=== PATIENT | male | born 1955 | race Caucasian/White ===

== ENCOUNTER 2018-12-22 17:44 | Observation (INO) | payer OTHER ==
[2018-12-22 18:38] LABS: #Basophils 0.1 thou/uL (0.0-0.2); #Eosinphils 0.1 thou/uL (0.0-0.7); #Monocytes 0.8 thou/uL (0.11-0.59); #Neutrophils 6.4 thou/uL (1.40-6.50); %Basophils 0.6 % (0.0-1.0); %Eosinophils 1.2 % (0.0-10.0); %Lymphocytes 28.8 % (21.0-51.0); %Monocytes 7.7 % (0.0-10.0); %Neutrophils 61.7 % (42.0-75.0); Hemoglobin 14.8 g/dL (14.0-18.0); Mean Corpuscular HGB CONC 34.5 g/dL (32.0-36.0); Mean Corpuscular Hemoglobin 32.9 pg (27.0-31.0); Mean Corpuscular Volume 95.3 fL (78.0-98.0); Mean Platelet Volume 8.6 fL (7.4-10.4); Platelet Count 246 thou/uL (130-400); White Blood Cell (WBC) Count 10.3 thou/uL (4.8-10.8)
[2018-12-22 18:58] LABS: ALT (SGPT) 25 U/L (8-55); AST (SGOT) 16 U/L (5-34); Albumin 4.1 g/dL (3.4-4.8); Alkaline Phosphatase 156 U/L (40-110); Anion Gap 10 mmol/L (10-20); BUN (Urea Nitrogen) 9 mg/dL (8.4-25.7); Bilirubin, Total 0.4 mg/dL (0.2-1.2); Calc. Creatinine Clearance 0 mL/min (70-130); Calcium 9.1 mg/dL (7.8-10.44); Carbon Dioxide 27 mmol/L (23-31); Chloride 103 mmol/L (98-107); Estimated GFR-MDRD Greater than 90; Globulin 3.1 g/dL (2.4-3.5); Glucose 115 mg/dL (80-115); Potassium 3.7 mmol/L (3.5-5.1); Protein, Total 7.2 g/dL (5.8-8.1); Sodium 136 mmol/L (136-145)
--- NOTE | 2018-12-22 20:01 | CT ---
CT ANGIOGRAM OF THE THORACIC AORTA CT ANGIOGRAM OF THE ABDOMINAL AORTA 12/22/18 HISTORY: Headache. Numbness in the fingertips. Pain in the shoulder blades. COMPARISON: None. TECHNIQUE: CT angiogram of the thoracic and abdominal aorta performed in the axial plane. Three dimensional refo rmatted images are submitted for interpretation. FINDINGS: CHEST CT: No mediastinal mass, lymphadenopathy or hematoma. Heart size is within normal limits. No pericardial effusion. Minimal calcification of the coronary arteries. The visualized lower neck and axilla are unremarkable. Trachea and central bronchi are patent. Emphys ematous changes with blebs and bullae in both lung apices. No suspicious masses or consolidation. Add itional small blebs are noted in the right lower lobe. No pleural effusion. No pneumothorax. ABDOMEN CT: Fatty infiltration of the liver. Appropriate arterial phase enhancement of the spleen, pancreas and r ight adrenal gland. Indeterminate left adrenal nodule measuring 2.1 x 2.1 cm. Appropriate enhancement of the kidneys. Bilaterally, no obstructive uropathy. No mesenteric mass, lym phadenopathy, free air of free fluid. Limited evaluation of the alimentary canal by the lack of oral contrast. No evidence of bowel obstruc tion. No lytic or blastic lesions in the osseous structures. CT ANGIOGRAM: The root of the aorta has a normal caliber and appropriate enhancement. The ascending thoracic aorta, aortic arch, descending thoracic aorta, abdominal aorta, and aortic bifurcation have appropriate enh ancement and luminal diameter. Minimal atherosclerosis of the infrarenal abdominal aorta. The origin of the great vessels of the neck are unremarkable. The celiac artery origin, superior mese nteric artery origin, bilateral renal artery origins, inferior mesenteric artery origin as well as th e visualized iliac arteries have appropriate enhancement and luminal diameter. No evidence of aneurys m or dissection. IMPRESSION: 1. No evidence of aneurysm or dissection. 2. Indeterminate left adrenal nodule. Nonemergent abdomen MRI or adrenal mass protocol CT can be performed. 3. Emphysematous change of the lung parenchyma. POS: PHYLICIA
[2018-12-22] MEDS ORDERED: Nitroglycerin 0.4 MG TAB (25 Tab Bottle) PO PRN (21:56)
[2018-12-22 22:02] LABS: Troponin I 0.011 ng/mL (< 0.028)
--- NOTE | 2018-12-22 22:18 | HP ---
PRIMARY CARE PROVIDER: Dr. Jordan Ugalde. CHIEF COMPLAINT: Chest pain. HISTORY OF PRESENT ILLNESS: Mr. Mccauley is a pleasant 63-year-old gentleman, who was seen at [facility] on December 22, 2018. 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 Over the last several months, he has had episodes of tinnitus and lightheadedness. His also reports that he is hard of hearing. Over the last 2 days, he has had pain in his left upper extremity. He attributes it to grabbing the handrail on his truck. Today afternoon, he started having left-sided chest pain. He reports it as on and off, sharp, 3/10 at its worst, radiating to his left arm. He denies any worsening of his shortness of breath. He has chronic shortness of breath secondary to COPD. He denies any cough or fevers. He has been trying to quit smoking and is currently down to two packs of cigarettes a week, from two packs a day a few weeks ago. The patient cannot recall any aggravating or relieving factors for the chest pain. REVIEW OF SYSTEMS: All systems were reviewed and found to be negative except for the pertinent positives mentioned above. PAST MEDICAL HISTORY: COPD, dyslipidemia. PAST SURGICAL HISTORY: None. SOCIAL HISTORY: The patient smokes two packs of cigarettes a week. He denies alcohol use or recreational drug use. FAMILY HISTORY: Significant for hypertension in several family members. ALLERGIES: FLUOROQUINOLONES AND ZOCOR. CURRENT MEDICATIONS: ProAir HFA one puff daily, QVAR one puff daily, fenofibrate 54 mg daily, Zetia 10 mg daily, levocetirizine 5 mg daily, albuterol inhalation as needed. PHYSICAL EXAMINATION: GENERAL: On examination, Mr. Mccauley is awake and alert, not in acute distress. VITAL SIGNS: Blood pressure is 123/72, pulse 75, respiratory rate 20, and oxygen saturation 97% on room air. He is afebrile. EYES: No scleral icterus, no conjunctival pallor. ENT: Moist mucosal membranes. No oropharyngeal erythema or exudates. NECK: Supple, nontender. Trachea is midline. RESPIRATORY: Accessory muscles of breathing are not active. Chest wall movements are symmetric bilaterally. LUNGS: Clear to auscultation without wheeze, rhonchi, or crepitations. CARDIOVASCULAR: S1 and S2 are heard, regular. Peripheral pulses palpable. ABDOMEN: Soft, nontender. Bowel sounds heard. NEUROLOGIC: Cranial nerves 2 through 12 are intact. MUSCULOSKELETAL: Power is 5/5 in all 4 extremities. No left upper extremity tenderness. SKIN: No rashes or subcutaneous nodules. LYMPHATIC: No cervical lymphadenopathy. PSYCHIATRIC: Normal mood, normal affect. The patient is oriented to person, place, and time. LABORATORY DATA: Mr. Mccauley's labs and investigations were reviewed. A 12-lead EKG shows normal sinus rhythm, no ST changes to suggest an acute coronary syndrome. CT dissection protocol did not show any evidence of aneurysm or dissection. He had an indeterminate left adrenal nodule. He had emphysematous change of the lung parenchyma. He has an unremarkable CBC. Elevated alkaline phosphatase of 156, otherwise normal comprehensive metabolic profile, and first troponin I that is less than 0.010. ASSESSMENT AND PLAN: Mr. Mccauley is a pleasant 63-year-old gentleman, who was seen at [facility] on December 22, 2018. His problem list includes. 1. Chest pain: Mr. Mccauley is presenting with chest pain. Given his significant risk factors, the patient will be admitted to the hospital for acute coronary syndrome rule out. We will monitor on telemetry. We will recheck troponin. We will obtain stress test. 2. Adrenal nodule: The patient will be advised to follow up with his primary care provider for further workup. 3. Tobacco abuse: The patient has been counseled regarding tobacco cessation. We will continue him on nicotine replacement therapy. Many thanks for allowing me to participate in your patient's care. Please feel free to contact me with any questions or concerns. LEVEL OF RISK: Moderate. LEVEL OF COMPLEXITY: Moderate. Job ID: [id number]
[2018-12-22 22:42] VITALS: BMI 34.8
[2018-12-23 00:58] LABS: Troponin I 0.026 ng/mL (< 0.028)
[2018-12-23] MEDS ORDERED: Acetaminophen 325 MG TAB PO PRN (07:12)
[2018-12-23] MEDS ORDERED: Albuterol Sulfate 2.5 mg/3 ml Neb NEB SCH (09:00)
[2018-12-23] MEDS ORDERED: Fenofibrate Nanocrystallized 145 MG TAB PO SCH (09:00)
[2018-12-23] MEDS ORDERED: Ezetimibe 10 MG TAB PO SCH (09:00)
[2018-12-23] MEDS ORDERED: Aspirin 325 mg Enteric Coated Tablet PO SCH (09:00)
--- NOTE | 2018-12-23 09:46 | PDOC.HOSPP ---
- Subjective Encounter Date: 12/23/18 Encounter Time: 07:30 Subjective: Patient seen and examined. No new complaints. No overnight events - Objective Vital Signs & Weight: Vital Signs (12 hours) Temp Pulse Resp BP Pulse Ox 12/23/18 07:37 77 18 93 L 12/23/18 07:23 97.7 F 76 20 114/62 96 12/23/18 03:03 98.6 F 76 17 133/63 96 12/22/18 21:55 97.9 F 82 18 135/62 95 Weight Weight 196 lb 11.2 oz I&O: 12/22/18 12/23/18 12/24/18 06:59 06:59 06:59 Intake Total 480 Output Total 500 Balance -20 Result Diagrams: 12/22/18 18:16 12/22/18 18:16 Radiology Reviewed by me: Yes EKG Reviewed by me: Yes Hospitalist ROS - Review of Systems Eyes: denies: pain, vision change, conjunctivae inflammation, eyelid inflammation, redness, other ENT: denies: ear pain, ear discharge, nose pain, nose discharge, nose congestion , mouth pain, mouth swelling, throat pain, throat swelling, other Respiratory: denies: cough, dry, shortness of breath, hemoptysis, SOB with excertion, pleuritic pain, sputum, wheezing, other Cardiovascular: denies: chest pain, palpitations, orthopnea, paroxysmal noc. dyspnea, edema, light headedness, other Gastrointestinal: denies: nausea, vomiting, abdominal pain, diarrhea, constipation, melena, hematochezia, other Genitourinary: denies: dysuria, frequency, incontinence, hematuria, retention, other Musculoskeletal: denies: neck pain, shoulder pain, arm pain, back pain, hand pain, leg pain, foot pain, other Skin: denies: rash, lesions, aneesh, bruising, other - Medication Medications: Active Medications Generic Name Dose Route Start Last Admin Trade Name Freq PRN Reason Stop Dose Admin Albuterol Sulfate 2.5 mg 12/23/18 09:00 12/23/18 07:37 Ventolin NEB 2.5 mg BID TIERRA Administration - Exam General Appearance: NAD, awake alert Eye: PERRL, anicteric sclera ENT: normocephalic atraumatic, no oropharyngeal lesions Neck: supple, symmetric, no JVD, no thyromegaly Heart: RRR, no murmur, no gallops, no rubs Respiratory: CTAB, no wheezes, no rales, no ronchi Gastrointestinal: soft, non-tender, non-distended, normal bowel sounds Extremities: no cyanosis, no clubbing, no edema Skin: normal turgor, no lesions, no rashes Neurological: cranial nerve grossly intact, no focal deficits Musculoskeletal: normal tone, normal strength Psychiatric: normal affect, normal behavior, A&O x 3 Hosp A/P (1) Chest pain Code(s): R07.9 - CHEST PAIN, UNSPECIFIED Status: Acute (2) COPD (chronic obstructive pulmonary disease) Status: Chronic Qualifiers: COPD type: unspecified COPD Qualified Code(s): J44.9 - Chronic obstructive pulmonary disease, unspecified (3) Dyslipidemia Code(s): E78.5 - HYPERLIPIDEMIA, UNSPECIFIED Status: Chronic (4) Obesity (BMI 30.0-34.9) Code(s): E66.9 - OBESITY, UNSPECIFIED Status: Chronic - Plan old records reviewed/req, plan discussed w/ family stress test ordered medication reviewed as above symptomatic treatment home meds reconciled discharge after stress test if negative
[2018-12-23] MEDS ORDERED: Regadenoson 0.4 MG/5 ML SYRINGE ONE (12:00)
--- NOTE | 2018-12-23 12:16 | NM ---
CARDIAC SPECT: CLINICAL HISTORY: 63-year-old male with chest pain, COPD, shortness of breath, smoker. TECHNIQUE: A myocardial perfusion scan was performed using the single isotope one day protocol with technetium-9 9m sestamibi. 10 mCi were injected intravenously for the rest exam followed by 33 mCi for the stress exam. Pharmacologic stress with Lexiscan was monitored and interpreted by Kimberly Peres NP. FINDINGS: Homogeneous tracer distribution is seen in the myocardial segments on stress and rest images without fixed or reversible defects. GATED SPECT LVEF: 50%. WALL MOTION EXAM: Normal. IMPRESSION: Normal myocardial perfusion scan. POS: OFF
[2018-12-23] MEDS ORDERED: PROVENTIL INHALER 6.7 G (200 INHALATIONS) INH PRN (13:00)
[2018-12-23 16:00] VITALS: BP 139/65; TEMP 98.1
--- NOTE | 2018-12-23 16:09 | DIS ---
DATE OF ADMISSION: 12/22/2018 DATE OF DISCHARGE: 12/23/2018 PRIMARY CARE PHYSICIAN: [facility] Call admission. DISCHARGE DISPOSITION: Home. PRIMARY DISCHARGE DIAGNOSIS: Chest pain ruled out acute coronary syndrome. SECONDARY DISCHARGE DIAGNOSES: Chronic obstructive pulmonary disease, dyslipidemia, obesity. PRIMARY PROCEDURE/OPERATION: None. RADIOLOGICAL INVESTIGATION: CT dissection protocol negative for any dissection. Stress test negative for any ischemia. SIGNIFICANT LABORATORY DATA: WBC 10.3, hemoglobin 14.8, platelet 246. Sodium 136, potassium 3.7, BUN 9, creatinine 0.81, calcium 9.1. LFTs normal. Troponin negative x3. DISCHARGE MEDICATIONS: 1. ProAir HFA 2 puffs q.6 hourly p.r.n. 2. Albuterol nebulization twice daily. 3. Qvar inhalation b.i.d. 4. Zetia 10 mg daily. 5. Tricor 145 mg daily. 6. Levocetirizine 5 mg daily. 7. Nicotine patch as directed. 8. Ibuprofen 800 mg t.i.d. p.r.n. CONTRAINDICATION: None. CODE STATUS: Full code. INPATIENT AIR COMMODORE: None. ALLERGIES: LEVAQUIN, SIMVASTATIN. DISCHARGE PLAN: Posthospital, the patient will follow up with primary care physician in 1 or 2 weeks. HOSPITAL COURSE: A 63-year-old male with above-mentioned medical problem, who was admitted by Dr. Almanzar. Please see his H and P for further details. The patient was admitted for chest pain. A chest pain description was atypical. He had negative troponin as well as negative EKG. CT dissection protocol was negative. The patient was observed overnight and telemetry remained unremarkable. Subsequent cardiac enzymes remained negative and the patient also did not have any further chest pain. We did stress test and that came back negative. The patient will continue all his previous medication. Overall, the patient remained medically stable and we have excluded cardiopulmonary etiology. The patient is seen and examined at bedside today. Please see my progress note from today for further detail. Job ID: [id number]
[2018-12-23] MEDS ORDERED: Mometasone 100 MCG HFA INHALER INH SCH (18:30)
== END 2018-12-23 16:55 | disposition home or self-care (01) ==
LOC: ERS 17:44 → 2SW 20:35
PROVIDERS: ADMIT Internal Medicine; ATTEND Internal Medicine
DX: R07.89 Other chest pain (principal); J44.9 Chronic obstructive pulmonary disease, unspecified; E78.5 Hyperlipidemia, unspecified; F17.210 Nicotine dependence, cigarettes, uncomplicated; E27.8 Other specified disorders of adrenal gland; E66.9 Obesity, unspecified; Z68.34 Body mass index [BMI] 34.0-34.9, adult; Z79.899 Other long term (current) drug therapy; Z88.1 Allergy status to other antibiotic agents; Z88.8 Allergy status to other drugs, medicaments and biological substances
CPT/HCPCS: 36415; 71275; 72191; 74175; 78452; 80053; 84484; 85025; 93005; 93017; 94640; A9500; G0378; J2785; J7611

== ENCOUNTER 2019-11-03 08:46 | Emergency (ER) | payer OTHER ==
[2019-11-03] MEDS ORDERED: Ondansetron PF 4 MG/2 ML Vial ONE (09:15)
[2019-11-03] MEDS ORDERED: Ketorolac Tromethamine 30 MG/ML VIAL ONE (09:15)
[2019-11-03 09:27] LABS: #Basophils 0.1 thou/uL (0.0-0.2); #Eosinphils 0.3 thou/uL (0.0-0.7); #Lymphocytes 2.6 thou/uL (1.20-3.40); #Monocytes 1.1 thou/uL (0.11-0.59); %Basophils 0.4 % (0.0-1.0); %Eosinophils 2.3 % (0.0-10.0); %Lymphocytes 19.7 % (21.0-51.0); %Monocytes 8.5 % (0.0-10.0); %Neutrophils 69.1 % (42.0-75.0); Mean Corpuscular Hemoglobin 33.1 pg (27.0-31.0); Mean Corpuscular Volume 97.2 fL (78.0-98.0); Mean Platelet Volume 9.2 fL (7.4-10.4); Platelet Count 240 thou/uL (130-400); RBC Distribution Width 11.8 % (11.5-14.5); Red Blood Cell (RBC) Count 4.53 mill/uL (4.70-6.10)
[2019-11-03 09:50] LABS: Bilirubin Negative (Negative); Blood, Urine Negative (Negative); Clarity Clear (Clear); Glucose, Urine (Dipstick) Normal (Negative); Ketone, Urine Negative (Negative); Leukocyte Negative Leu/uL (Negative); Nitrite Negative (Negative); Protein, Urine (Dipstick) Negative (Neg-Trace); Specific Gravity, Urine 1.023 (1.002-1.036); Urobilinogen Normal mg/dL (Less than 2); pH, Urine 5.5 (5.0-9.0)
[2019-11-03 09:59] LABS: ALT (SGPT) 24 U/L (8-55); AST (SGOT) 22 U/L (5-34); Albumin 4.1 g/dL (3.4-4.8); Alkaline Phosphatase 120 U/L (40-110); Anion Gap 16 mmol/L (10-20); BUN (Urea Nitrogen) 16 mg/dL (8.4-25.7); Bilirubin, Total 0.6 mg/dL (0.2-1.2); Calc. Creatinine Clearance 0 mL/min (70-130); Carbon Dioxide 20 mmol/L (23-31); Chloride 106 mmol/L (98-107); Estimated GFR-MDRD 56; Globulin 3.3 g/dL (2.4-3.5); Glucose 141 mg/dL (80-115); Lipase 36 U/L (8-78); Potassium 4.4 mmol/L (3.5-5.1); Protein, Total 7.4 g/dL (5.8-8.1); Sodium 138 mmol/L (136-145)
--- NOTE | 2019-11-03 11:35 | CT ---
CT ABDOMEN AND PELVIS WITHOUT CONTRAST: HISTORY: Right-sided abdominal pain radiating to the testicle. FINDINGS: The absence of oral and IV contrast reduces the sensitivity of the exam, particularly for evaluation of solid organs involved. The lung bases are clear. Calcified granulomas are seen in the spleen. There is fatty infiltration of the liver and spleen. There is fatty infiltration in the liver. No calcified gallstones are seen . There is a 2.5 cm left adrenal nodule with attenuation values less than 10 Hounsfield units, consi stent with a benign adenoma. No free air or free fluid is seen in the abdomen or pelvis. There is a 3 mm calculus at the right UPJ with associated hydronephrosis. There is a punctate calcul us in the kidney. No calculi are seen in the left kidney, left ureter, or the urinary bladder. No l eft-sided hydroureteral nephrosis is seen. The small bowel loops are not abnormally dilated. A normal-appearing appendix is present. There are vascular calcifications without evidence of aneurysmal dilatation of the abdominal aorta. There are degenerative changes in the spine. IMPRESSION: 1. A 3 mm right ureteropelvic junction calculus with hydronephrosis. 2. Left adrenal adenoma. 3. Fatty liver. 4. Calcified granulomas in the liver and spleen. POS: OFF
--- NOTE | 2019-11-06 14:14 | EKG ---
Test Reason : Blood Pressure : / mmHG Vent. Rate : 074 BPM Atrial Rate : 074 BPM P-R Int : 124 ms QRS Dur : 072 ms QT Int : 380 ms P-R-T Axes : 022 033 057 degrees QTc Int : 421 ms Sinus rhythm with Premature atrial complexes Otherwise normal ECG Confirmed by DMITRIY PERALTA, DIMPLE ([id number]), associate entertainment editor JACK SERRANO ([id number]) on 11/06/2019 2:13:52 PM Referred By: Confirmed By:DIMPLE IZAGUIRRE MD
== END 2019-11-03 11:39 | disposition home or self-care (01) ==
LOC: ERS 08:46
DX: N13.2 Hydronephrosis with renal and ureteral calculous obstruction (principal); D35.02 Benign neoplasm of left adrenal gland; E11.9 Type 2 diabetes mellitus without complications; E78.5 Hyperlipidemia, unspecified; E78.00 Pure hypercholesterolemia, unspecified; J44.9 Chronic obstructive pulmonary disease, unspecified; F17.210 Nicotine dependence, cigarettes, uncomplicated; Z79.82 Long term (current) use of aspirin; Z79.84 Long term (current) use of oral hypoglycemic drugs; Z79.899 Other long term (current) drug therapy
CPT/HCPCS: 74176; 80053; 81003; 83605; 83690; 84484; 85025; 87086; 93005; 96361; 96374; 96375; J1885; J2405

== ENCOUNTER 2019-11-23 11:41 | Outpatient (CLI) | payer OTHER ==
[2019-11-23 14:29] LABS: #Eosinphils 0.3 thou/uL (0.0-0.7); #Lymphocytes 2.7 thou/uL (1.20-3.40); #Monocytes 0.7 thou/uL (0.11-0.59); #Neutrophils 5.1 thou/uL (1.40-6.50); %Basophils 0.5 % (0.0-1.0); %Eosinophils 3.7 % (0.0-10.0); %Lymphocytes 30.6 % (21.0-51.0); %Monocytes 7.5 % (0.0-10.0); %Neutrophils 57.7 % (42.0-75.0); Hemoglobin 14.3 g/dL (14.0-18.0); Mean Corpuscular HGB CONC 34.7 g/dL (32.0-36.0); Mean Corpuscular Hemoglobin 33.7 pg (27.0-31.0); Mean Corpuscular Volume 97.1 fL (78.0-98.0); Platelet Count 216 thou/uL (130-400); RBC Distribution Width 11.6 % (11.5-14.5); Red Blood Cell (RBC) Count 4.25 mill/uL (4.70-6.10); White Blood Cell (WBC) Count 8.8 thou/uL (4.8-10.8)
[2019-11-23 14:48] LABS: Anion Gap 14 mmol/L (10-20); BUN (Urea Nitrogen) 13 mg/dL (8.4-25.7); Calc. Creatinine Clearance 0 mL/min (70-130); Calcium 8.9 mg/dL (7.8-10.44); Carbon Dioxide 22 mmol/L (23-31); Chloride 108 mmol/L (98-107); Estimated GFR-MDRD Greater than 90; Glucose 97 mg/dL (80-115); Potassium 4.1 mmol/L (3.5-5.1); Sodium 140 mmol/L (136-145)
[2019-11-24 14:55] LABS: SARS-CoV-2 MS2 Positive; SARS-CoV-2 N Gene Negative; SARS-CoV-2 S Gene Negative; SARS-CoV-2 by NAA Not Detected (NotDetected); SARS-CoV-2 orf1ab Negative
--- NOTE | 2019-11-25 13:09 | EKG ---
Test Reason : Blood Pressure : / mmHG Vent. Rate : 073 BPM Atrial Rate : 073 BPM P-R Int : 130 ms QRS Dur : 084 ms QT Int : 390 ms P-R-T Axes : 062 053 058 degrees QTc Int : 429 ms Normal sinus rhythm with sinus arrhythmia Normal ECG When compared with ECG of 03-NOV-2019 09:28, Premature atrial complexes are no longer Present Confirmed by ANALI PERALTA, JOHN ([id number]) on 11/25/2019 1:08:51 PM Referred By: LEX Confirmed By:JOHN BRIONES MD
== END 2019-11-23 11:42 | disposition home or self-care (01) ==
LOC: LABBT 11:41
PROVIDERS: ATTEND Urology
DX: Z01.818 Encounter for other preprocedural examination (principal); Z20.828 Contact with and (suspected) exposure to other viral communicable diseases; Z12.5 Encounter for screening for malignant neoplasm of prostate; D35.02 Benign neoplasm of left adrenal gland; N20.1 Calculus of ureter; R35.0 Frequency of micturition; N52.9 Male erectile dysfunction, unspecified; N53.12 Painful ejaculation; R30.0 Dysuria; E11.9 Type 2 diabetes mellitus without complications; N48.89 Other specified disorders of penis; Z72.0 Tobacco use
CPT/HCPCS: 80048; 85025; 85610; 85730; 87635; 93005; 93010; U0003

== ENCOUNTER 2019-11-28 06:01 | Day surgery (SDC) | payer OTHER ==
[2019-11-23 15:24] VITALS: BMI 32.9
[2019-11-28] MEDS ORDERED: cefTRIAXone\\ROCEPHIN 2 GM VIAL ONE (06:55)
[2019-11-28] MEDS ORDERED: Sodium Chloride 0.9% 100 ML ONE (06:56)
[2019-11-28] MEDS ORDERED: Iothalamate Meglumine 60% 50 ML VIAL FS ONE (07:10)
--- NOTE | 2019-11-28 08:11 | RAD ---
RADIOGRAPH ABDOMEN 1 VIEW: DATE: 11/28/2019. TIME: 6:34 a.m. HISTORY: A 64-year-old male with right ureteral calculus. FINDINGS: There is a small, approximately 6 x 3 mm focal calcification projecting just to the right of the L3-4 level, consistent with the small calculus demonstrated on the abdominal CT of 11/03/2019. Its positio n has not changed. Bowel gas pattern is normal. IMPRESSION: Right ureteral 6 mm calculus remains essentially unchanged in position. POS: OFF
[2019-11-28] MEDS ORDERED: Fentanyl 100 MCG/2 ML VIAL ONE ×3 (08:49→10:52)
--- NOTE | 2019-11-28 09:58 | RAD ---
EXAM: Retrograde IVP HISTORY: Right kidney stone COMPARISON: CT abdomen/pelvis 11/03/2019 FINDINGS/IMPRESSION: Limited intraoperative fluoroscopic views of the retrograde IVP were submitted f or interpretation. There is a questionable calcification to the right of the L3/4 disc space. Eventually, a wire and stent are placed in the right renal collecting system which appears in good po sition proximally.
[2019-11-28] MEDS ORDERED: Phenazopyridine HCl 97.5 MG TABLET ONE ×2 (10:34)
[2019-11-28] MEDS ORDERED: EPHEDRINE 25 MG/5 ML SYRINGE ONE (11:13)
[2019-11-28] MEDS ORDERED: Ondansetron PF 4 MG/2 ML Vial ONE (11:13)
[2019-11-28] MEDS ORDERED: Lidocaine 1% PF 5 ML VIAL ONE (11:13)
[2019-11-28] MEDS ORDERED: PROPOFOL 200 MG/20 ML VIAL ONE (11:13)
[2019-11-28] MEDS ORDERED: Rocuronium Bromide 10 MG/ML (10ML VIAL) ONE (11:13)
[2019-11-28] MEDS ORDERED: Glycopyrrolate 0.2 MG/ML 5 ML SYRINGE ONE (11:13)
--- NOTE | 2019-11-28 16:12 | OP ---
DATE OF PROCEDURE: 11/28/2019 PREOPERATIVE DIAGNOSIS: 64-year-old male with history of right 6-mm proximal ureteral calculi with hydronephrosis. POSTOPERATIVE DIAGNOSIS: 64-year-old male with history of right 6-mm proximal ureteral calculi with hydronephrosis. PROCEDURES PERFORMED: Cystoscopy, dilation of the right intramural ureter, retrograde pyelogram, 6 x 24 double-J ureteral stent placement, flexible ureteroscopy, pyeloscopy, laser lithotripsy of right proximal ureteral calculi. ANESTHESIA: LMA, general. DISPOSITION: To recovery room in stable condition. INTRAOPERATIVE FINDINGS: 1. Bilobar [id number] hyperplasia of the prostate. No intravesical median lobe. UOs about 3 mm proximal to the bladder neck. 2. Bladder grossly unremarkable. 3. Right proximal ureteral calculi, impacted, imbedded with submucosal growth. SPECIMEN: None. INDICATIONS FOR PROCEDURE AND HISTORY: Mr. Mccauley is a 64-year-old male, who presented to the emergency room on November 02 due to right flank pain. CT demonstrating right hydronephrosis with proximal right ureteral calculi measuring about 6 mm in craniocaudal dimension at the level of L2. Preop KUB today demonstrates a stone did migrate to the level of L3-L4 ureter, however, is persistent. He continues to have intermittent discomfort and presents today for ureteroscopy, laser lithotripsy. Risks and complications of the procedure have been discussed with him in detail including, but not limited to: Bleeding, pain, infection, ureteral renal kidney injury, stricture formation, possible secondary procedure, sepsis, and chronic pain. All questions answered to his satisfaction. He desired to proceed without reservation. DESCRIPTION OF PROCEDURE: After an informed consent was signed, the patient was taken to the operating room, placed in a dorsal lithotomy position with the genital area prepped and draped in the usual surgical sterile fashion. Bilateral MIO hose, SCDs, and broad-spectrum antibiotics were provided. At this time, a 21-[place] Islander cystoscope was utilized for cystoscopy, which demonstrated normal anterior urethra. Prostatic urethra demonstrates evidence of bilobar hyperplasia, reet-hx-dmxyyiuf obstruction with no evidence of intravesical median lobe. The UOs were about 3 mm proximal to the bladder neck and the bladder was grossly unremarkable without tumor, stone. The UOs were identified bilaterally. They appeared to be somewhat small in caliber with no obvious stenosis. An open-ended catheter was difficult to intubate the right UO and a 0.035 Sensor wire was utilized to intubate and subsequently, an open-ended catheter passed. At this time, the wire was passed. There was resistance at the level of the stone. However, with some manipulation, we were able to pass this to the level of the right upper pole. At this time, a 15-[place] Islander 6- cm balloon dilatation of the intramural ureter was performed with pressure held for about a minute or two and subsequently, the balloon was completely deflated, successfully dilating the right distal ureter under fluoroscopic guidance. At this time, a 10-[place]er dual-lumen access sheath was passed to the level of the mid ureter and a second wire was able to be negotiated into the right upper pole. At this time with both wires in place, we attempted to pass a navigator. A 14-[place]er navigator was attempted to be passed. However, there was hang up at the level of the distal ureter, at the level of mid SI level therefore I did not forcibly engage. As such, we passed the flexible ureteroscope under visual guidance over the Super Stiff guidewire. The ureteroscope was advanced to the level of the stone on fluoroscopy and the stone was visualized. Subsequently, the Super Stiff wire was removed with the safety wire in situ. A 200 micron laser fiber at 1.0 joules was utilized to fragment the stone. It appeared to be adherent with some mucosal growth. His ureter caliber was somewhat small and therefore was difficult to negotiate the scope. However, we were able to laser some of the stone free and render it free. Some of the fragments did migrate into the right upper pole and we did sanjeev it into the renal pelvis and they were minute punctate debris. We then surveyed the ureter distally, and there were some residual fragments at the level of L3-L4 ureter, where the stone was impacted. With surveying the ureter distally, there was further stone nidus at the level of L3, L4, the original stone location KUB. The residual stone debris that was adherent appeared to have submucosal growth creating a small defect pocket of the submucosa of the ureter. We gently lasered some of these free off the mucosa. However, the ureteral mucosa appeared quite thin. Therefore, I did not forcibly laser further stone nidus. I did perform a gentle retrograde pyelogram at this junction where the impaction was, there was extravasation, which was mild. Given the impacted nature of submucosal impaction with a stone debris adherent to the mucosa with some mucosal defect, I did not further manipulate the stone. There were tiny stone fragments still residual. However, the stone nidus remains about 3 to 4 mm in this junction. At this time, a 6 x 24 double-J ureteral stent was passed after the ureteroscope was removed. Distal ureteral surveillance demonstrated no evidence of mucosa defect or stone in the distal ureter per se, where the navigator was in place previously. The bladder was emptied and a 6 x 24 double-J ureteral stent was passed without difficulty and all wires were removed. He tolerated the procedure well. As there was some mucosal growth with a pocket of stone with extravasation in this region, I plan on bringing back to the OR in about 3 to 4 weeks for a re-staged ureteroscopy, laser lithotripsy after the mucosa heals, so we may render the residual stone off the mucosal growth safely. He tolerated the procedure well and transported to the recovery room in stable condition. As he does have evidence of tjar-qz-eklrisfp BPH, Flomax 0.4 mg #30 with three refills was provided, tramadol 50 mg #30 p.r.n. pain, Colace, Azo, Ditropan 5 mg every 8 hours p.r.n. for bladder spasm. We will also provide empiric antibiotic therapy with Omnicef 300 mg one p.o. b.i.d. for course of 7 days. He will follow up with me next week to preop for staged ureteroscopy, laser lithotripsy in 3-to 4-week interval. Job ID: [id number] [facility]
== END 2019-11-28 13:00 | disposition home or self-care (01) ==
LOC: SDC 06:01
PROVIDERS: ATTEND Urology
PROC: 0T768DZ Dilation of Right Ureter with Intraluminal Device, Via Natural or Artificial Opening Endoscopic (ICD-10-PCS; principal; 2019-11-28)
PROC: 0TC68ZZ Extirpation of Matter from Right Ureter, Via Natural or Artificial Opening Endoscopic (ICD-10-PCS; principal; 2019-11-28)
PROC: 0TC38ZZ Extirpation of Matter from Right Kidney Pelvis, Via Natural or Artificial Opening Endoscopic (ICD-10-PCS; principal; 2019-11-28)
DX: N13.2 Hydronephrosis with renal and ureteral calculous obstruction (principal); N40.0 Benign prostatic hyperplasia without lower urinary tract symptoms; N52.9 Male erectile dysfunction, unspecified; N48.89 Other specified disorders of penis; N53.12 Painful ejaculation; R35.0 Frequency of micturition; E11.9 Type 2 diabetes mellitus without complications; E78.00 Pure hypercholesterolemia, unspecified; J44.9 Chronic obstructive pulmonary disease, unspecified; F17.200 Nicotine dependence, unspecified, uncomplicated; Z79.82 Long term (current) use of aspirin; Z79.84 Long term (current) use of oral hypoglycemic drugs; Z79.899 Other long term (current) drug therapy; Z88.1 Allergy status to other antibiotic agents; Z88.8 Allergy status to other drugs, medicaments and biological substances
CPT/HCPCS: 36416; 74018; 74420; J0696; J2405; J2704; J3010; J3490

== ENCOUNTER 2019-12-21 06:29 | Outpatient (CLI) | payer OTHER ==
[2019-12-21 13:58] LABS: Hemoglobin 14.2 g/dL (14.0-18.0); Mean Corpuscular HGB CONC 34.1 g/dL (32.0-36.0); Mean Corpuscular Hemoglobin 33.2 pg (27.0-31.0); Mean Corpuscular Volume 97.4 fL (78.0-98.0); Mean Platelet Volume 9.6 fL (7.4-10.4); Platelet Count 220 thou/uL (130-400); RBC Distribution Width 11.6 % (11.5-14.5); Red Blood Cell (RBC) Count 4.27 mill/uL (4.70-6.10); White Blood Cell (WBC) Count 8.1 thou/uL (4.8-10.8)
[2019-12-21 14:01] LABS: PTT 33.1 sec (22.9-36.1); Prothrombin Time 13.2 sec (12.0-14.7)
[2019-12-21 14:22] LABS: Bacteria/HPF None Seen HPF (None Seen); Bilirubin Negative (Negative); Blood, Urine 3+ (Negative); Clarity Turbid (Clear); Glucose, Urine (Dipstick) Normal (Negative); Ketone, Urine Negative (Negative); Leukocyte 250 Leu/uL (Negative); Nitrite Negative (Negative); Protein, Urine (Dipstick) 70 mg/dL (Neg-Trace); RBC/HPF Greater than 50 HPF (0-3); Specific Gravity, Urine 1.015 (1.002-1.036); Squamous Epithelial None Seen HPF (0-3); Urobilinogen Normal mg/dL (Less than 2); WBC/HPF 21-50 HPF (0-3); pH, Urine 5.5 (5.0-9.0)
[2019-12-21 14:39] LABS: Anion Gap 12 mmol/L (10-20); BUN (Urea Nitrogen) 13 mg/dL (8.4-25.7); Calc. Creatinine Clearance 0 mL/min (70-130); Calcium 9.2 mg/dL (7.8-10.44); Carbon Dioxide 25 mmol/L (23-31); Chloride 107 mmol/L (98-107); Estimated GFR-MDRD 86; Glucose 111 mg/dL (80-115); Potassium 4.3 mmol/L (3.5-5.1); Sodium 140 mmol/L (136-145)
[2019-12-22 11:59] LABS: SARS-CoV-2 MS2 Positive; SARS-CoV-2 N Gene Negative; SARS-CoV-2 S Gene Negative; SARS-CoV-2 by NAA Not Detected (NotDetected); SARS-CoV-2 orf1ab Negative
--- NOTE | 2019-12-23 12:10 | EKG ---
Test Reason : Blood Pressure : / mmHG Vent. Rate : 058 BPM Atrial Rate : 058 BPM P-R Int : 132 ms QRS Dur : 078 ms QT Int : 396 ms P-R-T Axes : 054 064 070 degrees QTc Int : 388 ms Sinus bradycardia Otherwise normal ECG When compared with ECG of 23-NOV-2019 12:26, No significant change was found Confirmed by PAT FRANKLIN (2) on 12/23/2019 12:10:23 PM Referred By: TANNER Confirmed By:PAT FRANKLIN
== END 2019-12-21 06:30 | disposition home or self-care (01) ==
LOC: LABBT 06:29
PROVIDERS: ATTEND Urology
DX: Z01.818 Encounter for other preprocedural examination (principal); Z20.828 Contact with and (suspected) exposure to other viral communicable diseases; N20.1 Calculus of ureter; Z12.5 Encounter for screening for malignant neoplasm of prostate; D35.02 Benign neoplasm of left adrenal gland; R35.0 Frequency of micturition; E11.9 Type 2 diabetes mellitus without complications; N52.9 Male erectile dysfunction, unspecified; N48.89 Other specified disorders of penis; N53.12 Painful ejaculation; R30.0 Dysuria; Z72.0 Tobacco use
CPT/HCPCS: 80048; 81001; 85027; 85610; 85730; 87086; 87635; 93005; 93010; U0003

== ENCOUNTER 2019-12-26 05:49 | Day surgery (SDC) | payer OTHER ==
[2019-12-25 11:39] VITALS: BMI 32.9
[2019-12-26] MEDS ORDERED: Fentanyl 100 MCG/2 ML VIAL ONE (06:38)
[2019-12-26] MEDS ORDERED: cefTRIAXone\\ROCEPHIN 1 GM VIAL ONE (06:49)
[2019-12-26] MEDS ORDERED: Sodium Chloride 0.9% 100 ML ONE (06:49)
[2019-12-26] MEDS ORDERED: Iothalamate Meglumine 60% 50 ML VIAL FS ONE (07:14)
--- NOTE | 2019-12-26 08:00 | RAD ---
EXAM: Single view of the abdomen HISTORY: Right ureteral calcification COMPARISON: 11/28/2019 FINDINGS: Single view of the abdomen shows a nonspecific, nonobstructive bowel gas pattern. No suspi cious calcifications are seen. The previously seen calcification in the region of the mid ureter is not visualized on today's examination. There is a right-sided ureteral stent which appears in good po sition. The bones are unremarkable. IMPRESSION: No urinary collecting system calculi identified
[2019-12-26] MEDS ORDERED: Tamsulosin HCl 0.4 MG CAP ONE (08:27)
[2019-12-26] MEDS ORDERED: Phenazopyridine HCl 100 MG TAB ONE (08:27)
[2019-12-26] MEDS ORDERED: Oxybutynin 5 MG TAB ONE (08:27)
--- NOTE | 2019-12-26 08:47 | RAD ---
Retrograde pyelogram: 12/26/2019 HISTORY: Right ureteral stone, stent FINDINGS: Initial image demonstrates a right-sided double-J ureteral stent. That stent is later remov ed and replaced with a new right-sided double-J ureteral stent. IMPRESSION: Right double-J ureteral stent exchange.
--- NOTE | 2019-12-26 08:49 | OP ---
DATE OF PROCEDURE: 12/26/2019 PREOPERATIVE DIAGNOSIS: A 64-year-old male with history of right 6 mm proximal ureteral calculi impacted with mucosal growth. POSTOPERATIVE DIAGNOSIS: A 64-year-old male with history of right 6 mm proximal ureteral calculi impacted with mucosal growth. PROCEDURES PERFORMED: Cystoscopy, diagnostic right ureteroscopy, retrograde pyelogram, 6 x 24 double-J ureteral stent exchange, on Daner. ANESTHESIA: LMA. DISPOSITION: To recovery room in stable condition. INTRAOPERATIVE FINDINGS: 1. Bilobar [id number] hyperplasia of the prostate, no median lobe. UOs about 3 mm proximal to bladder neck. 2. Bladder is grossly unremarkable. 3. Diagnostic ureteroscopy and pyeloscopy demonstrating no residual stone of concern, no stricture, no mucosal defect. INDICATIONS FOR PROCEDURE AND HISTORY: Mr. Mccauley is a pleasant male, who presented to the emergency room due to right flank pain. CT demonstrating right hydronephrosis due to 6 to 7 mm right ureteral calculi. The stone was located at the level of L2. He presented for ureteroscopy, laser lithotripsy, which was performed on November 27. Ureteroscopy demonstrated mucosal overgrowth, stone was challenging to treat; however, we were able to laser lithotripsy most of the stone debris. Previous ureteroscopy demonstrated the stone imbedded, with submucosal growth with a small defect in the mucosa. Therefore, he presents today for staged ureteroscopy, laser lithotripsy to rule out residual stone nidus. Previously, there may have been a small residual stone nidus. However, I did not forcibly engage. There was concern regarding mucosal defect. Therefore, he had a stent for the last few weeks and presents today for ureteroscopy. Risks and complications of the procedure were reviewed with him in detail including, but not limited to, bleeding, pain, infection, injury to adjacent organs, urosepsis, ureteral renal kidney injury, stricture formation. All questions answered to his satisfaction. He desired to proceed. DESCRIPTION OF PROCEDURE: After an informed consent was signed, the patient was taken to the operating room and placed in a dorsal lithotomy position with the genital area prepped and draped in the usual surgical sterile fashion. Bilateral MIO hose, SCDs, and broad-spectrum antibiotics were provided. At this time, a 21-Urdu cystoscope was utilized for cystoscopy, which demonstrated no evidence of urethral stricture. Bilobar hyperplasia as previously was noted. Mild to moderate lateral lobes. No intravesical median lobe. UOs are about 3 mm proximal to the bladder neck. No bladder tumors were seen or stones. Previously placed right ureteral stent was removed to the level of the meatus and a 0.035 Sensor wire was placed. There was some resistance at the proximal coil. However, we were able to pass the wire through the stent atraumatically. We attempted to perform a rigid ureteroscopy. I was able to pass this into the intramural ureter component; however, due to his body habitus and the tight suspensory ligament, the angle was suboptimal. Therefore, I transitioned to flexible ureteroscope. At this time, with the pre-existing wire in place, we passed a 10-Urdu dual-lumen access sheath which was passed without difficulty. Retrograde pyelogram demonstrated no evidence of hydronephrosis, no extravasation of contrast nor filling defect. At this time, a 0.035 Super Stiff wire was placed into the right upper pole and a flexible ureteroscope was advanced over the rigid wire to the level of the renal pelvis upper pole. We surveyed the collecting system demonstrating no evidence of stone nidus of concern. Then, we surveyed the ureter, which demonstrated no ureteral stone nidus residual. I did stage the ureter of the previous side of impacted mucosal growth, I did not see any intraluminal ureteral calculi debris of concern. There was no evidence of mucosa defect nor ureteral stricture of concern. At this time, a 6 x 24 double-J ureteral stent was passed without difficulty over the safety wire and all wires were removed. Good coil was seen in the kidney bladder and the stent was left on Dangler. Bladder was completely emptied and he tolerated the procedure well. I will see him next week for stent pull on Dangler. Job ID: [id number] [facility] [place]
[2019-12-26] MEDS ORDERED: Ondansetron PF 4 MG/2 ML Vial ONE (12:18)
[2019-12-26] MEDS ORDERED: Lidocaine 1% PF 5 ML VIAL ONE (12:18)
[2019-12-26] MEDS ORDERED: Dexamethasone 20 MG/5 ML VIAL ONE (12:18)
[2019-12-26] MEDS ORDERED: PROPOFOL 200 MG/20 ML VIAL ONE (12:18)
== END 2019-12-26 09:30 | disposition home or self-care (01) ==
LOC: SDC 05:49
PROVIDERS: ATTEND Urology
PROC: 0T768DZ Dilation of Right Ureter with Intraluminal Device, Via Natural or Artificial Opening Endoscopic (ICD-10-PCS; principal; 2019-12-26)
DX: N20.1 Calculus of ureter (principal); J44.9 Chronic obstructive pulmonary disease, unspecified; E78.00 Pure hypercholesterolemia, unspecified; F17.200 Nicotine dependence, unspecified, uncomplicated; D35.02 Benign neoplasm of left adrenal gland; N52.9 Male erectile dysfunction, unspecified; Z79.82 Long term (current) use of aspirin; Z79.84 Long term (current) use of oral hypoglycemic drugs; Z79.899 Other long term (current) drug therapy; Z88.1 Allergy status to other antibiotic agents; Z88.8 Allergy status to other drugs, medicaments and biological substances
CPT/HCPCS: 74018; 74420; J0696; J1100; J2405; J2704; J3010; J3490

== ENCOUNTER 2020-04-02 07:45 | Outpatient (CLI) | payer OTHER ==
--- NOTE | 2020-04-02 09:05 | RAD ---
SUPINE ABDOMEN: INDICATION: Followup kidney stones. COMPARISON: 12/26/2019. FINDINGS: The right ureteral stent present on the prior exam has been removed. No evidence of renal or urinary tract calcification. The rounded calcification overlying the left upper quadrant is unchanged. Bowel gas pattern unremarkable with scattered stool throughout the colon. IMPRESSION: No evidence of urinary tract calcification identified. POS: [facility]
--- NOTE | 2020-04-02 10:26 | ULT ---
BILATERAL RENAL ULTRASOUND: Date: 04/02/2020 COMPARISON: None. HISTORY: Renal stone disease, frequent urination. TECHNIQUE: Multiplanar Abreu scale sonographic imaging of the kidneys and urinary bladder obtained. FINDINGS: The right kidney measures 11.3 x 4.6 x 4.9 cm and demonstrates no evidence for stone, hydronephrosis, or mass lesion. The left kidney measures 11.9 x 6.7 x 5.8 cm and demonstrates no evidence for stone, hydronephrosis, or mass lesion. Urinary bladder is completely empty. IMPRESSION: Grossly unremarkable renal ultrasound. If there is clinical concern for renal stone disease, KUB or C T suggested. POS: [facility]
== END 2020-04-02 07:46 | disposition home or self-care (01) ==
LOC: BICULT 07:45
PROVIDERS: ATTEND Urology
DX: R35.0 Frequency of micturition (principal); Z87.442 Personal history of urinary calculi
CPT/HCPCS: 74018; 76770

== ENCOUNTER 2022-04-30 12:24 | Outpatient (CLI) | payer MEDICARE | END 2022-04-30 12:25 | disposition home or self-care (01) | LOC: BICCT 12:24 | PROVIDERS: ATTEND Family Medicine | DX: Z12.2 Encounter for screening for malignant neoplasm of respiratory organs (principal); F17.218 Nicotine dependence, cigarettes, with other nicotine-induced disorders | CPT/HCPCS: 71271 ==

== ENCOUNTER 2022-12-19 15:59 | Inpatient (IN) | payer MEDICARE ==
[~2022-12-19 15:59] MED LIST: Iopamidol-370 76% 500 ML MDV (1 ML CHARGE) ONE
[2022-12-19] MEDS ORDERED: Morphine 4 MG/ML VIAL ONE ×2 (16:16→17:13)
[2022-12-19 16:38] LABS: #Basophils 0.1 thou/uL (0.0-0.2); #Eosinphils 0.1 thou/uL (0.0-0.7); #Neutrophils 13.2 thou/uL (1.40-6.50); %Basophils 0.4 % (0.0-1.0); %Eosinophils 0.4 % (0.0-10.0); %Lymphocytes 9.4 % (21.0-51.0); %Monocytes 6.3 % (0.0-10.0); %Neutrophils 82.9 % (42.0-75.0); Hemoglobin 14.9 g/dL (14.0-18.0); Mean Corpuscular HGB CONC 33.9 g/dL (32.0-36.0); Mean Corpuscular Volume 94.6 fl (78.0-98.0); Mean Platelet Volume 10.7 fL (7.4-10.4); Platelet Count 246 10x3/uL (130-400); RBC Distribution Width 12.6 % (11.5-14.5); Red Blood Cell (RBC) Count 4.65 mill/uL (4.70-6.10); White Blood Cell (WBC) Count 15.8 10x3/uL (4.8-10.8)
[2022-12-19 17:05] LABS: Troponin I Less than 0.010 ng/mL (< 0.028)
[2022-12-19 17:07] LABS: ALT (SGPT) 55 U/L (8-55); AST (SGOT) 48 U/L (5-34); Albumin 4.6 g/dL (3.4-4.8); Alkaline Phosphatase 183 U/L (40-110); Anion Gap 17 mmol/L (10-20); BUN (Urea Nitrogen) 15 mg/dL (8.4-25.7); Bilirubin, Total 0.5 mg/dL (0.2-1.2); Calc. Creatinine Clearance 0 mL/min (70-130); Calcium 9.4 mg/dL (7.8-10.44); Carbon Dioxide 21 mmol/L (23-31); Chloride 105 mmol/L (98-107); Estimated GFR 81; Globulin 3.2 g/dL (2.4-3.5); Glucose 181 mg/dL (80-115); Potassium 4.1 mmol/L (3.5-5.1); Protein, Total 7.8 g/dL (5.8-8.1); Sodium 139 mmol/L (136-145)
[2022-12-19] MEDS ORDERED: Ipratropium/Albuterol 3 ML NEB NEB PRN (17:07)
[2022-12-19] MEDS ORDERED: TETANUS, DIPHTHERIA TOX,ADULT (TDVAX) 0.5 ML VIAL IM ONE (17:07)
[2022-12-19] MEDS ORDERED: Ondansetron ODT 4 MG TAB PO PRN (17:07)
[2022-12-19] MEDS ORDERED: hydrALAZINE 20 MG/ML VIAL SLOW IVP PRN (17:07)
[2022-12-19] MEDS ORDERED: Boostrix 0.5 ML (Tdap) VIAL (>/=7 yrs of age) ONE (17:13)
[2022-12-19] MEDS ORDERED: Ketorolac Tromethamine 30 MG/ML VIAL ONE (17:13)
[2022-12-19] MEDS ORDERED: Rib Fracture Protocol PO SCH (17:15)
[2022-12-19] MEDS ORDERED: Ipratropium/Albuterol 3 ML NEB ONE (17:22)
[2022-12-19] MEDS: Ibuprofen 200 MG TAB PO SCH (20:02)
[2022-12-19] MEDS: Acetaminophen 500 MG TAB PO SCH ×2 (20:02→23:06)
[2022-12-19] MEDS: traMADol HCl 50 MG TAB PO SCH ×2 (20:02→23:05)
[2022-12-19 20:07] VITALS: BMI 34.0
[2022-12-19] MEDS: Gabapentin 300 MG CAP PO SCH (20:20)
[2022-12-19] MEDS: Famotidine 20 MG TAB PO SCH (20:20)
[2022-12-19] MEDS: Cyclobenzaprine 10 MG TAB PO PRN (20:20)
[2022-12-19 21:13] LABS: Lactic Acid 2.9 mmol/L (0.5-2.2)
[2022-12-20] MEDS: Ibuprofen 200 MG TAB PO SCH ×2 (01:30→08:43)
[2022-12-20] MEDS: Acetaminophen 500 MG TAB PO SCH ×3 (05:24→16:37)
[2022-12-20] MEDS: traMADol HCl 50 MG TAB PO SCH ×3 (05:25→16:36)
[2022-12-20 06:53] LABS: #Eosinphils 0.1 thou/uL (0.0-0.7); #Monocytes 1.4 thou/uL (0.11-0.59); #Neutrophils 8.3 thou/uL (1.40-6.50); %Basophils 0.3 % (0.0-1.0); %Eosinophils 0.7 % (0.0-10.0); %Lymphocytes 21.5 % (21.0-51.0); %Monocytes 11.3 % (0.0-10.0); %Neutrophils 65.9 % (42.0-75.0); Hematocrit 39.7 % (42.0-52.0); Hemoglobin 13.1 g/dL (14.0-18.0); Mean Corpuscular Hemoglobin 32.1 pg (27.0-31.0); Mean Corpuscular Volume 97.3 fl (78.0-98.0); Mean Platelet Volume 11.3 fL (7.4-10.4); Platelet Count 237 10x3/uL (130-400); RBC Distribution Width 12.9 % (11.5-14.5); Red Blood Cell (RBC) Count 4.08 mill/uL (4.70-6.10); White Blood Cell (WBC) Count 12.6 10x3/uL (4.8-10.8)
[2022-12-20 07:17] LABS: Anion Gap 15 mmol/L (10-20); BUN (Urea Nitrogen) 20 mg/dL (8.4-25.7); Calc. Creatinine Clearance 72 mL/min (70-130); Calcium 9.7 mg/dL (7.8-10.44); Carbon Dioxide 23 mmol/L (23-31); Chloride 106 mmol/L (98-107); Estimated GFR 66; Glucose 141 mg/dL (80-115); Potassium 4.1 mmol/L (3.5-5.1); Sodium 140 mmol/L (136-145)
[2022-12-20] MEDS: Gabapentin 300 MG CAP PO SCH ×3 (08:41→20:53)
[2022-12-20] MEDS: Famotidine 20 MG TAB PO SCH ×2 (08:43→20:52)
[2022-12-20] MEDS ORDERED: Sodium Chloride 0.9% 500 ML IV SCH (09:30)
[2022-12-20 18:48] LABS: Bacteria/HPF None Seen HPF (None Seen); Bilirubin Negative (Negative); Blood, Urine Negative (Negative); CAUTI Indications for Culture Pelvic or flank pain; Clarity Clear (Clear); Glucose, Urine (Dipstick) 30 mg/dL (Negative); Ketone, Urine Negative (Negative); Leukocyte Negative Leu/uL (Negative); Nitrite Negative (Negative); Protein, Urine (Dipstick) 20 mg/dL (Neg-Trace); RBC/HPF 0-3 HPF (0-3); Squamous Epithelial 0-3 HPF (0-3); Urobilinogen Normal mg/dL (Less than 2); WBC/HPF 0-3 HPF (0-3); pH, Urine 5.5 (5.0-9.0)
[2022-12-20 18:49] LABS: Specific Gravity, Urine 1.046 (1.002-1.036); Urine Culture Reflex No No
[2022-12-20] MEDS: Senokot S 8.6-50 MG TAB PO SCH (20:51)
[2022-12-20] MEDS: CeleCOXIB 100 MG CAP PO SCH (20:52)
[2022-12-21] MEDS: Acetaminophen 500 MG TAB PO SCH ×6 (00:07→23:56)
[2022-12-21] MEDS: traMADol HCl 50 MG TAB PO SCH ×5 (00:34→23:56)
[2022-12-21] MEDS: Cyclobenzaprine 10 MG TAB PO PRN ×3 (00:38→19:04)
[2022-12-21] MEDS ORDERED: Ketorolac Tromethamine 30 MG/ML VIAL IVP SCH (05:15)
[2022-12-21 07:22] LABS: #Basophils 0.1 thou/uL (0.0-0.2); #Eosinphils 0.1 thou/uL (0.0-0.7); #Monocytes 1.3 thou/uL (0.11-0.59); #Neutrophils 11.6 thou/uL (1.40-6.50); %Basophils 0.4 % (0.0-1.0); %Eosinophils 0.6 % (0.0-10.0); %Lymphocytes 8.3 % (21.0-51.0); %Monocytes 8.8 % (0.0-10.0); %Neutrophils 81.4 % (42.0-75.0); Hematocrit 38.7 % (42.0-52.0); Hemoglobin 12.8 g/dL (14.0-18.0); Mean Corpuscular HGB CONC 33.1 g/dL (32.0-36.0); Mean Corpuscular Hemoglobin 32.5 pg (27.0-31.0); Mean Corpuscular Volume 98.2 fl (78.0-98.0); Mean Platelet Volume 11.3 fL (7.4-10.4); Platelet Count 187 10x3/uL (130-400); RBC Distribution Width 12.6 % (11.5-14.5); Red Blood Cell (RBC) Count 3.94 mill/uL (4.70-6.10); White Blood Cell (WBC) Count 14.3 10x3/uL (4.8-10.8)
[2022-12-21] MEDS: Tamsulosin HCl 0.4 MG CAP PO SCH (09:16)
[2022-12-21] MEDS: Senokot S 8.6-50 MG TAB PO SCH ×2 (09:17→21:16)
[2022-12-21] MEDS: Famotidine 20 MG TAB PO SCH ×2 (09:17→21:21)
[2022-12-21] MEDS: Polyethylene Glycol 3350 17 GM Packet PO SCH ×2 (09:17→09:27)
[2022-12-21] MEDS: CeleCOXIB 100 MG CAP PO SCH ×2 (09:18→21:22)
[2022-12-21] MEDS: Gabapentin 300 MG CAP PO SCH ×3 (09:18→21:16)
[2022-12-21] MEDS: Ipratropium/Albuterol 3 ML NEB NEB SCH ×2 (18:04→18:38)
[2022-12-22] MEDS: Ipratropium/Albuterol 3 ML NEB NEB SCH ×2 (02:21→07:18)
[2022-12-22] MEDS: Acetaminophen 500 MG TAB PO SCH ×2 (06:02→11:57)
[2022-12-22] MEDS: traMADol HCl 50 MG TAB PO SCH ×2 (06:02→11:58)
[2022-12-22] MEDS: Tamsulosin HCl 0.4 MG CAP PO SCH (09:13)
[2022-12-22] MEDS: Senokot S 8.6-50 MG TAB PO SCH (09:13)
[2022-12-22] MEDS: Gabapentin 300 MG CAP PO SCH (09:14)
[2022-12-22] MEDS: CeleCOXIB 100 MG CAP PO SCH (09:14)
[2022-12-22] MEDS: Famotidine 20 MG TAB PO SCH (09:15)
[2022-12-22] MEDS: Polyethylene Glycol 3350 17 GM Packet PO SCH (09:16)
[2022-12-22 11:57] VITALS: BP 115/71; TEMP 98.4
== END 2022-12-22 13:00 | disposition home or self-care (01) | DRG 200 ==
LOC: ERS 15:59 → SURG A 17:07 → OBSVTOIN 12-20 11:38
PROVIDERS: ADMIT Surgery; ATTEND Surgery
DX: S27.0XXA Traumatic pneumothorax, initial encounter (principal); S22.41XA Multiple fractures of ribs, right side, initial encounter for closed fracture; J44.9 Chronic obstructive pulmonary disease, unspecified; Z88.8 Allergy status to other drugs, medicaments and biological substances; Z79.82 Long term (current) use of aspirin; Z79.899 Other long term (current) drug therapy; E11.9 Type 2 diabetes mellitus without complications; E78.00 Pure hypercholesterolemia, unspecified; F17.210 Nicotine dependence, cigarettes, uncomplicated; W11.XXXA Fall on and from ladder, initial encounter
CPT/HCPCS: 36415; 71045; 71046; 71260; 74177; 80048; 80053; 81001; 83605; 84484; 85025; 90471; 90715; 93005; 94640; 94760; 96372; 96374; 96375; 96376; G0378; J1650; J1885; J2270; J7030; J7611; J7620; Q9967

== ENCOUNTER 2023-01-10 09:39 | Outpatient (CLI) | payer MEDICARE | END 2023-01-10 09:40 | disposition home or self-care (01) | LOC: RAD 09:39 | PROVIDERS: ATTEND Surgery | DX: S22.41XA Multiple fractures of ribs, right side, initial encounter for closed fracture (principal); R91.8 Other nonspecific abnormal finding of lung field | CPT/HCPCS: 71046 ==